=== PATIENT | female | born 1945 | race Caucasian/White ===

== ENCOUNTER 2016-05-09 19:05 | Emergency (ER) | payer MEDICARE ==
[2016-05-09] MEDS ORDERED: BENZONATATE 100 MG CAPSULE PO STA (19:42)
[2016-05-09] MEDS ORDERED: ALBUTEROL NEB 2.5 MG/3 ML INH STA ×2 (19:42→20:32)
[2016-05-09] MEDS ORDERED: DEXAMETHASONE 10 MG/ML VIAL PO STA (19:43)
[2016-05-09] MEDS ORDERED: BENZONATATE 100 MG CAPSULE PO ONE (19:49)
[2016-05-09] MEDS ORDERED: DEXAMETHASONE 10 MG/ML VIAL ONE (19:49)
[2016-05-09] MEDS ORDERED: CHERRY SYRUP 10 ML UDC PO ONE (19:49)
[2016-05-09] MEDS ORDERED: ALBUTEROL NEB 2.5 MG/3 ML INH ONE (20:03)
[2016-05-09] MEDS ORDERED: guaiFENesin/CODEINE 5 ML UDC PO STA (20:32)
[2016-05-09] MEDS ORDERED: guaiFENesin/CODEINE 5 ML UDC ONE ×2 (20:35→20:36)
[2016-05-09] MEDS ORDERED: ALBUTEROL 8 GM INHALER INH ONE (20:38)
[2016-05-09] MEDS ORDERED: ALBUTEROL 8 GM INHALER INH STA (20:42)
== END 2016-05-09 21:30 | disposition home or self-care (01) ==
DX: J40 Bronchitis, not specified as acute or chronic (principal); R03.0 Elevated blood-pressure reading, without diagnosis of hypertension; J45.909 Unspecified asthma, uncomplicated; G47.30 Sleep apnea, unspecified; K21.9 Gastro-esophageal reflux disease without esophagitis
CPT/HCPCS: 71020; 94640; 94664; 99283; 99284; A9270; J7613

== ENCOUNTER 2017-02-09 10:49 | Outpatient (CLI) | payer MEDICARE ==
--- NOTE | 2017-02-10 09:39 | Mammography Report ---
DIGITAL SCREENING MAMMOGRAPHY: 02/09/2017 COMPARISON: 02/12/2014, 09/19/2012, 04/11/2010, AND 03/28/2009. TECHNIQUE: Bilateral digital CC and MLO projections. FINDINGS: There are scattered fibroglandular densities. There is no dominant mass, architectural di stortion, skin thickening, suspicious microcalcifications, or obvious interval change. IMPRESSION: NEGATIVE. BIRADS CATEGORY 1. SUGGEST ROUTINE ANNUAL SCREENING. STANDARD QUALIFYING STATEMENTS 1. This examination was reviewed with the aid of Computer-Aided Detection (CAD). 2. A negative or benign imaging report should not delay biopsy if clinically suspicious findings are present. Consider surgical consultation if warranted. More than 5% of cancers are not identified by i maging. 3. Dense breasts may obscure an underlying neoplasm. JOB #: [id number] EXT JOB #:[id number]
== END 2017-02-09 10:50 | disposition home or self-care (01) ==
LOC: DI.N 10:49
PROVIDERS: ATTEND Obstetrics & Gynecology
DX: Z12.31 Encounter for screening mammogram for malignant neoplasm of breast (principal)
CPT/HCPCS: 77067

== ENCOUNTER 2018-02-11 07:04 | Outpatient (CLI) | payer MEDICARE ==
[2018-02-11 13:10] LABS: BASOPHILS % (AUTO) 0.1 %; EOSINOPHILS % (AUTO) 0.1 %; HGB - HEMOGLOBIN 12.8 g/dL (12.0-16.0); LYMPHOCYTES # (AUTO) 0.6 10^3/uL (1.5-3.5); LYMPHOCYTES % (AUTO) 18.9 %; MEAN CORPUSCULAR HGB CONC 34.8 g/dL (32.0-36.0); MEAN CORPUSCULAR VOLUME 89.1 fL (81.0-99.0); MEAN PLATELET VOLUME 8.6 fL (7.9-10.8); MONOCYTES # (AUTO) 0.3 10^3/uL (0.0-1.0); NEUTROPHILS # (AUTO) 2.2 10^3/uL (1.5-6.6); NEUTROPHILS % (AUTO) 69.9 %; PLT - PLATELET COUNT 163 10^3/uL (130-450); RED BLOOD COUNT 4.14 10^6/uL (4.20-5.40); RED CELL DISTRIBUTION WIDTH 13.8 % (12.0-15.0); WHITE BLOOD COUNT 3.2 x10^3/uL (4.8-10.8)
[2018-02-11 13:17] LABS: ALBUMIN 4.3 g/dL (3.2-5.5); ALBUMIN/GLOBULIN RATIO 1.7 (1.0-2.2); ALKALINE PHOSPHATASE 103 IU/L (42-121); ALT ALANINE AMINOTRANSFERASE 18 IU/L (10-60); AST ASPARTATE AMINOTRANSFERASE 21 IU/L (10-42); BILIRUBIN,TOTAL 0.6 mg/dL (0.2-1.0); BUN - BLOOD UREA NITROGEN 16 mg/dL (6-20); CALCIUM 9.2 mg/dL (8.5-10.3); CARBON DIOXIDE - CO2 27 mmol/L (21-32); CHLORIDE 102 mmol/L (101-111); CHOLESTEROL 185 mg/dL; CREATININE 0.7 mg/dL (0.4-1.0); GFR - MDRD 82 (>89); GLUCOSE 81 mg/dL (70-100); HDL CHOLESTEROL 61 mg/dL; LDL CHOLESTEROL,CALCULATED 111 mg/dL; LDL/HDL RATIO 1.8 (<4.4); SODIUM 138 mmol/L (135-145); TOTAL PROTEIN 6.9 g/dL (6.7-8.2); VLDL CHOLESTEROL 13 mg/dL
== END 2018-02-11 23:59 | disposition home or self-care (01) ==
LOC: LAB.WCP 07:04
PROVIDERS: ATTEND Family Medicine
DX: I10 Essential (primary) hypertension (principal)
CPT/HCPCS: 36415; 80053; 80061; 83721; 84443; 85025

== ENCOUNTER 2018-05-17 08:00 | Outpatient (CLI) | payer MEDICARE ==
[2018-05-17 12:44] LABS: BASOPHILS % (AUTO) 0.1 %; EOSINOPHILS % (AUTO) 0.1 %; HGB - HEMOGLOBIN 12.2 g/dL (12.0-16.0); LYMPHOCYTES # (AUTO) 0.6 10^3/uL (1.5-3.5); LYMPHOCYTES % (AUTO) 19.1 %; MEAN CORPUSCULAR HEMOGLOBIN 30.7 pg (27.0-31.0); MEAN CORPUSCULAR HGB CONC 34.9 g/dL (32.0-36.0); MEAN CORPUSCULAR VOLUME 87.9 fL (81.0-99.0); MEAN PLATELET VOLUME 8.3 fL (7.9-10.8); MONOCYTES # (AUTO) 0.4 10^3/uL (0.0-1.0); MONOCYTES % (AUTO) 11.6 %; NEUTROPHILS # (AUTO) 2.2 10^3/uL (1.5-6.6); NEUTROPHILS % (AUTO) 69.1 %; PLT - PLATELET COUNT 156 10^3/uL (130-450); RED BLOOD COUNT 3.99 10^6/uL (4.20-5.40); RED CELL DISTRIBUTION WIDTH 13.3 % (12.0-15.0); WHITE BLOOD COUNT 3.1 x10^3/uL (4.8-10.8)
[2018-05-17 13:00] LABS: CHOL/HDL RATIO 2.9 (<4.4); CHOLESTEROL 170 mg/dL; GLUCOSE 89 mg/dL (70-100); HDL CHOLESTEROL 58 mg/dL; LDL CHOLESTEROL,CALCULATED 100 mg/dL; LDL/HDL RATIO 1.7 (<4.4); VLDL CHOLESTEROL 12 mg/dL
[2018-05-17 13:13] LABS: HB2 TOTAL 12.8 g/dL; HEMOGLOBIN A1C 0.36 g/dL; HEMOGLOBIN A1C % 4.7 % (4.6-6.2)
== END 2018-05-17 23:59 | disposition home or self-care (01) ==
LOC: LAB.WCP 08:00
PROVIDERS: ATTEND Registered Nurse
DX: Z00.00 Encounter for general adult medical examination without abnormal findings (principal)
CPT/HCPCS: 36415; 80061; 82947; 83036; 83721; 84443; 85025

== ENCOUNTER 2018-06-02 15:35 | Outpatient (CLI) | payer MEDICARE ==
--- NOTE | 2018-06-03 09:52 | XRAY Report ---
Reason: HAND PAIN,RIGHT Procedure Date: 06/02/2018 Accession Number: [id number] / [id number] Procedure: WCP - Hand 3 View RT CPT Code: FULL RESULT: EXAM: RIGHT HAND RADIOGRAPHY EXAM DATE: 06/02/2018 03:43 PM. CLINICAL HISTORY: Right hand pain. Hit hand on branch. COMPARISON: None. TECHNIQUE: 3 views. FINDINGS: Bones: No acute fracture or bony lesion. Degenerative spurring largely along the DIP and PIP and first metacarpophalangeal and first carpometacarpal joints. No bony erosions. Joints: Joint space narrowing of the DIP and PIP and first metacarpophalangeal and carpometacarpal joints. No dislocation. Soft Tissues: No radiopaque foreign bodies. IMPRESSION: 1. No acute osseous abnormalities. 2. Degenerative changes of the right hand. RADIA
== END 2018-06-02 15:36 | disposition home or self-care (01) ==
LOC: DI.WCP 15:35
PROVIDERS: ATTEND Family Medicine
DX: M19.041 Primary osteoarthritis, right hand (principal); M77.9 Enthesopathy, unspecified

== ENCOUNTER 2018-07-13 07:45 | Outpatient (CLI) | payer MEDICARE ==
--- NOTE | 2018-07-13 08:52 | Mammography Report ---
Reason: SCREENING MAMMO Procedure Date: 07/13/2018 Accession Number: [id number] / [id number] Procedure: [facility] - Screening Mammo w/Mike CPT Code: FULL RESULT: EXAM: Screening Mammo w/Mike DATE: 07/13/2018 8:13 AM CLINICAL HISTORY: Screening encounter. History of early menses. Personal history of endometrial cancer and family history of breast cancer in a paternal aunt. TECHNIQUE: (B) - Bilateral CC and MLO views were obtained. COMPARISON: 02/09/2017 through 04/11/2010. PARENCHYMAL PATTERN: (A) - The breast(s) demonstrate(s) scattered fibroglandular densities. FINDINGS: There are no suspicious masses, calcifications, or areas of distortion. IMPRESSION: Negative examination. BI-RADS category 1. RECOMMENDATION: (ANNUAL) - Recommend routine annual screening mammography. BI-RADS CATEGORY: (1) - Negative. STANDARD QUALIFYING STATEMENTS: 1. This examination was not reviewed with the aid of Computer-Aided Detection (CAD). 2. A negative or benign imaging report should not preclude biopsy if clinically suspicious findings are present. 3. Dense breasts may obscure an underlying neoplasm. 4. This examination was reviewed with the aid of 3D breast imaging (tomosynthesis).
== END 2018-07-13 07:46 | disposition home or self-care (01) ==
LOC: DI 07:45
DX: Z12.31 Encounter for screening mammogram for malignant neoplasm of breast (principal); Z80.3 Family history of malignant neoplasm of breast
CPT/HCPCS: 77063; 77067

== ENCOUNTER 2018-07-13 07:46 | Outpatient (CLI) | payer MEDICARE ==
--- NOTE | 2018-07-14 08:08 | DEXA Report ---
Reason: SCREENING FOR OSTEOPOROSIS Procedure Date: 07/13/2018 Accession Number: [id number] / [id number] Procedure: DEX - Dexa Spine and/or Hip CPT Code: FULL RESULT: EXAM: Dexa Spine and/or Hip DATE: 07/13/2018 8:25 AM CLINICAL HISTORY: SCREENING FOR OSTEOPOROSIS TECHNIQUE: Dual energy x-ray absorptiometry (DXA) was performed on a [employer] System. Regions measured are the AP Spine, femoral neck, and if needed forearm. COMPARISON: None. In accordance with the International Society for Clinical Densitometry (ISCD) guidelines, data from previous exams may be reanalyzed using current recommendations and techniques. This is done to allow a more accurate basis for comparison with the current study. FINDINGS: The data for the lumbar spine is as follows: BMD (g/cm/cm) T-SCORE Z-SCORE REGION L1 0.811 -2.7 -1.7 L2 0.799 -3.3 -2.4 L3 1.055 -1.2 -0.2 L4 1.363 1.4 2.3 TOTAL 1.019 -1.3 -0.4 NOTE: All evaluable vertebrae are used for classification The data for the hip is as follows: BMD (g/cm/cm) T-SCORE Z-SCORE REGION Neck 0.871 -1.2 0.2 TOTAL 0.932 -0.6 0.5 NOTE: The femoral neck or total proximal femur, whichever is lowest, is used for classification. IMPRESSION: THE WHO CLASSIFICATION BASED ON THE INTERNATIONAL REFERENCE STANDARD IS OSTEOPENIA. THE FRACTURE RISK IS INCREASED. RECOMMENDATION: Patients with diagnosis of osteoporosis or osteopenia should have regular bone mineral density assessment. For those eligible for Medicare, routine testing is allowed once every 2 years. Testing frequency can be increased for patients who have rapidly progressing disease or for those who are receiving medical therapy to restore bone mass. COMMENT: World Health Organization (WHO) definitions for osteoporosis and osteopenia: NORMAL BMD: T-score at -1.0 or higher, fracture risk is low OSTEOPENIA BMD: T-score between -1.0 and -2.5, fracture risk is increased. OSTEOPOROSIS BMD: T-score at -2.5 or lower, fracture risk is high. National Osteoporosis Foundation recommends: 1. Obtain adequate dietary calcium (at least 1200 mg per day) and vitamin D (400-800 international units per day). 2. Participate, as appropriate, in regular weightbearing and muscle-strengthening exercise. 3. Avoid tobacco use and reduce alcohol and caffeine intake. 4. For more detailed information see the website at www.NOF.org.
== END 2018-07-13 07:47 | disposition home or self-care (01) ==
LOC: DI 07:46
PROVIDERS: ATTEND Registered Nurse
DX: Z13.820 Encounter for screening for osteoporosis (principal); M85.89 Other specified disorders of bone density and structure, multiple sites
CPT/HCPCS: 77080

== ENCOUNTER 2018-08-24 11:35 | Emergency (ER) | payer MEDICARE ==
--- NOTE | 2018-08-24 11:59 | ED Physician Documentation ---
PD HPI HEENT - Stated complaint Stated Complaint: DIFFICULTY SWALLOWING - Chief complaint Chief Complaint: Heent - History obtained from History obtained from: Patient - History of Present Illness Timing - onset: Yesterday (Noted in the morning when she took her morning vitamins and medications that she felt like a lump feeling and irritation in her upper esophagus/throat. She is continued with pain with swallowing there and a feeling like there may be a foreign body. She has not taken any antibiotics nor iron tablets. She has had a feeling of some perhaps swelling in the lower throat. She says her voice is normal. She has not had trouble breathing.) Timing - duration: Days (1) Timing - details: Abrupt onset, Still present Location: Throat Worsens: Swalllowing Associated symptoms: No: Fever, Congestion, Unable to swallow Similar symptoms before: Has not had sx before Recently seen: Not recently seen Review of Systems Constitutional: denies: Fever, Chills Nose: denies: Rhinorrhea / runny nose, Congestion Throat: reports: Sore throat. denies: Dental pain / toothache Cardiac: denies: Chest pain / pressure Respiratory: denies: Dyspnea, Cough GI: denies: Vomiting PD PAST MEDICAL HISTORY - Past Medical History Cardiovascular: None Respiratory: None, Asthma, Sleep apnea Endocrine/Autoimmune: None GI: GERD, Other EDGE STAINER MACHINE: None : None HEENT: None Psych: None Musculoskeletal: None Derm: None - Past Surgical History Past Surgical History: No General: Appendectomy, Colonoscopy Ortho: Arthroscopic surgery /EDGE STAINER MACHINE: Hysterectomy HEENT: Tonsil/Adenoidectomy, Other - Present Medications Home Medications: Ambulatory Orders Medication Instructions Recorded Confirmed Cyclosporine [Restasis] 1 drop EACHEYE DAILY 10/16/14 08/24/18 Estradiol [Estring] 1 each VG ONCE 10/16/14 08/24/18 Promethazine [Phenergan] 25 mg PO PRN PRN 05/09/16 08/24/18 dexAMETHasone [Decadron] 4 mg PO DAILY #5 tablet 08/24/18 raNITIdine HCl [Zantac] 150 mg PO DAILY 08/24/18 08/24/18 - Allergies Allergies/Adverse Reactions: Allergies Allergy/AdvReac Type Severity Reaction Status Date / Time gluten Allergy Unknown Verified 08/24/18 11:45 prednisone AdvReac Anxiety Verified 08/24/18 11:45 tetracycline AdvReac Cramps Verified 08/24/18 11:45 - Social History Does the pt smoke?: No Smoking Status: Never smoker Does the pt drink ETOH?: No Does the pt have substance abuse?: No - Immunizations Immunizations are current?: Yes - POLST Patient has POLST: No PD ED PE NORMAL - Vitals Vital signs reviewed: Yes - General General: Alert and oriented X 3, No acute distress, Well developed/nourished - HEENT HEENT: Pharynx benign - Derm Derm: Normal color, Warm and dry - Neuro Neuro: Alert and oriented X 3, No motor deficit, Normal speech Results - Vitals Vitals: Oxygen O2 Source Room air - Labs Labs: Laboratory Tests 08/24/18 12:50 Sodium 136 Potassium 4.1 Chloride 99 L Carbon Dioxide 25 Anion Gap 12.0 BUN 21 H Creatinine 0.9 Estimated GFR (MDRD) 61 L Glucose 99 Calcium 9.7 PD MEDICAL DECISION MAKING - ED course Complexity details: considered differential (likely residual irritation from pill temp stuck. discussed lido/mylanta and another day time to see if better, versus CT neck to eval. Were not expectedly caustic meds or such, such as iron or doxy, so time should be okay. Shared decision to give it another day. ), d/w patient Departure - Departure Disposition: 01 Home, Self Care Clinical Impression: Throat irritation Condition: Stable Record reviewed to determine appropriate education?: Yes Follow-Up: Mattie Brown MD [Primary Care Provider] - Prescriptions: dexAMETHasone [Decadron] 4 mg PO DAILY #5 tablet Comments: Your CT scan is normal without any signs of residual foreign body/pill and no signs of localized swelling tumors or other abnormality. The scan would not show just a local irritation of the throat. It would not necessarily identify mild swelling nor muscle tightness as well. At least there is no significant degree of swelling as that would be visible. Consider using some steroid type anti-inflammatory to help with swelling. This may even be allergy mediated. Soft food only for the next day or 2 in case it is an irritation from the tablets having been temporarily stuck. Recheck if not improved over the next couple of days. Discharge Date/Time: 08/24/18 14:26
[2018-08-24] MEDS ORDERED: CHERRY SYRUP 10 ML UDC PO ONE (12:18)
[2018-08-24] MEDS ORDERED: DEXAMETHASONE 10 MG/ML VIAL PO STA (12:18)
[2018-08-24 13:15] LABS: CALCIUM 9.7 mg/dL (8.5-10.3); CREATININE 0.9 mg/dL (0.4-1.0)
[2018-08-24] MEDS ORDERED: IOVERSOL 320 100 ML VIAL IVP ONE ×2 (13:21→13:45)
--- NOTE | 2018-08-24 14:01 | CT Report ---
Reason: feeling FB in throat, pain swallowing Procedure Date: 08/24/2018 Accession Number: [id number] / [id number] Procedure: CT - SOFT TISSUE NECK W CPT Code: FULL RESULT: EXAM: CT SOFT TISSUE NECK WITH CONTRAST. EXAM DATE: 08/24/2018 01:42 PM. HISTORY: Trouble swallowing. Feeling of foreign body in the throat. Pain with swallowing. COMPARISONS: None. TECHNIQUE: Routine soft tissue neck CT protocol. Reconstructions: Coronal and sagittal. IV contrast: 80 mL Optiray 320. In accordance with CT protocol optimization, one or more of the following dose reduction techniques were utilized for this exam: automated exposure control, adjustment of mA and/or KV based on patient size, or use of iterative reconstructive technique. FINDINGS: Visualized Intracranial Contents: Unremarkable. Orbits: Unremarkable. Note is made of bilateral lens removal. Sinuses: Visualized paranasal sinuses and mastoid air cells are clear. Oral cavity: Metallic artifact from dentition partially obscures the oral cavity. The floor of the mouth is symmetric. Pharynx: Pharyngeal mucosa is unremarkable. The infratemporal fossa, parapharyngeal spaces, and retropharyngeal space are unremarkable. The store director spaces and pterygopalatine fossa are unremarkable. The base of the tongue is symmetric and unremarkable. The airway is patent. Larynx: Larynx and supraglottic airway are patent without mass lesion. Vocal cords are symmetric. The visualized trachea is unremarkable. Parotid and Submandibular Glands: Symmetric and unremarkable. Lymph Nodes: No enlarged lymph nodes are identified in the cervical, supraclavicular, and visualized superior mediastinal regions. Soft tissues: Soft tissues are unremarkable. No mass lesion or abnormal enhancement. Vascular Structures: Patent and unremarkable. Thyroid Gland: Normal. Lung: The visualized lung apices are clear. The visualized proximal esophagus is unremarkable. Bones: No evidence of acute fracture or malalignment. There are mild degenerative changes. Other: None. IMPRESSION: 1. Negative CT scan of the neck. No mass or adenopathy is seen. No fascial plane inflammation or fluid collection is seen. 2. No radiopaque foreign body is evident. RADIA
[2018-08-24 14:26] VITALS: BP 123/63
== END 2018-08-24 14:26 | disposition home or self-care (01) ==
LOC: ED 11:35
DX: R07.0 Pain in throat (principal); R13.10 Dysphagia, unspecified; Z79.899 Other long term (current) drug therapy; Z87.09 Personal history of other diseases of the respiratory system; Z87.19 Personal history of other diseases of the digestive system
CPT/HCPCS: 36415; 70491; 80048; 99283; A9270; Q9967

== ENCOUNTER 2022-06-01 09:39 | Outpatient (CLI) | payer MEDICARE ==
[2022-06-01 09:54] LABS: EOSINOPHILS % (AUTO) 0.2 %; HCT - HEMATOCRIT 38.2 % (37.0-47.0); LYMPHOCYTES # (AUTO) 0.8 10^3/uL (1.5-3.5); LYMPHOCYTES % (AUTO) 20.5 %; MEAN CORPUSCULAR VOLUME 88.2 fL (81.0-99.0); MEAN PLATELET VOLUME 9.4 fL (7.9-10.8); MONOCYTES # (AUTO) 0.5 10^3/uL (0.0-1.0); MONOCYTES % (AUTO) 11.1 %; NEUTROPHILS # (AUTO) 2.8 10^3/uL (1.5-6.6); NEUTROPHILS % (AUTO) 68.2 %; PLT - PLATELET COUNT 150 10^3/uL (130-450); RED BLOOD COUNT 4.33 10^6/uL (4.20-5.40); RED CELL DISTRIBUTION WIDTH 12.9 % (12.0-15.0)
[2022-06-01 10:23] LABS: ALBUMIN 4.3 g/dL (3.2-5.5); ALBUMIN/GLOBULIN RATIO 1.8 (1.0-2.2); ALKALINE PHOSPHATASE 81 IU/L (42-121); ALT ALANINE AMINOTRANSFERASE 20 IU/L (10-60); AST ASPARTATE AMINOTRANSFERASE 21 IU/L (10-42); BILIRUBIN,TOTAL 0.8 mg/dL (0.2-1.0); BUN - BLOOD UREA NITROGEN 14 mg/dL (6-20); CALCIUM 9.1 mg/dL (8.5-10.3); CARBON DIOXIDE - CO2 25 mmol/L (21-32); CHLORIDE 97 mmol/L (101-111); CHOL/HDL RATIO 2.7 (<4.4); CHOLESTEROL 196 mg/dL; CREATININE 0.7 mg/dL (0.4-1.0); GFR - MDRD 81 (>89); GLUCOSE 99 mg/dL (70-100); HDL CHOLESTEROL 72 mg/dL; POTASSIUM 3.9 mmol/L (3.5-5.0); SODIUM 130 mmol/L (135-145); TOTAL PROTEIN 6.7 g/dL (6.7-8.2); TRIGLYCERIDES 39 mg/dL
[2022-06-01 10:36] LABS: THYROID STIMULATING HORMONE 2.77 uIU/mL (0.34-5.60)
[2022-06-01 14:00] LABS: ESTIMATED AVERAGE GLUCOSE 94 mg/dL (70-100); HEMOGLOBIN A1c% 4.9 % (4.27-6.07)
== END 2022-06-01 09:40 | disposition home or self-care (01) ==
LOC: LAB 09:39
PROVIDERS: ATTEND Nurse Practitioner Family
DX: R03.0 Elevated blood-pressure reading, without diagnosis of hypertension (principal); E66.9 Obesity, unspecified; Z13.220 Encounter for screening for lipoid disorders
CPT/HCPCS: 36415; 80053; 80061; 83036; 83721; 84443; 85025

== ENCOUNTER 2022-07-02 11:37 | Outpatient (CLI) | payer MEDICARE ==
[2022-07-02 12:00] LABS: CREATININE 0.7 mg/dL (0.4-1.0)
[2022-07-03 16:08] LABS: OSMOLALITY 281 mOsmol/kg (280-301); OSMOLALITY URINE 100 mOsmol/kg (.)
== END 2022-07-02 11:38 | disposition home or self-care (01) ==
LOC: LAB 11:37
PROVIDERS: ATTEND Nurse Practitioner Family
DX: E87.1 Hypo-osmolality and hyponatremia (principal)
CPT/HCPCS: 36415; 80048; 83930; 83935; 84300

== ENCOUNTER 2023-02-11 20:15 | Emergency (ER) | payer MEDICARE ==
[2023-02-11 20:26] VITALS: BP 150/90; O2SAT 100
[2023-02-11] MEDS ORDERED: LIDOCAINE JELLY 2% 6 ML JEL.PF.APP TOP STA (20:28)
--- NOTE | 2023-02-11 20:31 | ED Physician Documentation ---
PD HPI WOUND RECHECK - Stated complaint Stated Complaint: RT TOE BUG BITE - Chief complaint Chief Complaint: Wound - Histroy obtained from History obtained from: Patient (77-year-old woman was putting on her boots a couple of hours ago and thinks she was bitten by something to the right great toe with significant pain there. No other injuries. She did not see a bug.) PD PAST MEDICAL HISTORY - Past Medical History Past Medical History: Yes Cardiovascular: None Respiratory: None, Asthma, Sleep apnea Endocrine/Autoimmune: None GI: GERD, Other REGIONAL FACILITIES SPECIALIST: None : None HEENT: None Psych: None Musculoskeletal: None Derm: None - Past Surgical History Past Surgical History: No General: Appendectomy, Colonoscopy Ortho: Arthroscopic surgery /REGIONAL FACILITIES SPECIALIST: Hysterectomy HEENT: Tonsil/Adenoidectomy, Other - Present Medications Home Medications: Ambulatory Orders Medication Instructions Recorded Confirmed cycloSPORINE [Restasis] 1 drop EACHEYE DAILY 10/16/14 08/24/18 estradioL [Estring] 1 each VG ONCE 10/16/14 08/24/18 Promethazine [Phenergan] 25 mg PO PRN PRN 05/09/16 08/24/18 dexAMETHasone [Decadron] 4 mg PO DAILY #5 tablet 08/24/18 raNITIdine HCL [Zantac] 150 mg PO DAILY 08/24/18 08/24/18 lidocaine HCL [Dermacinrx Lidogel] 5 ml TP QID #100 gm 02/11/23 - Allergies Allergies/Adverse Reactions: Allergies Allergy/AdvReac Type Severity Reaction Status Date / Time gluten Allergy Unknown Verified 02/11/23 20:18 prednisone AdvReac Anxiety Verified 02/11/23 20:18 tetracycline AdvReac Cramps Verified 02/11/23 20:18 - Social History Does the pt smoke?: No Smoking Status: Never smoker Does the pt drink ETOH?: No Does the pt have substance abuse?: No - Immunizations Immunizations are current?: Yes - POLST Patient has POLST: No PD ED PE NORMAL - Vitals Vital signs reviewed: Yes - General General: Alert and oriented X 3, No acute distress - Extremities Extremities: Other (Redness to the tip of the right great toe without limited range of motion or significant tenderness.) - Neuro Neuro: Alert and oriented X 3, Normal speech Results - Vitals Vitals: Vital Signs - 24 hr 02/11/23 20:18 Temperature 36.5 C Heart Rate 77 Respiratory 18 Rate Blood Pressure 150/90 H O2 Saturation 100 Oxygen O2 Source Room air PD Medical Decision Making - ED course ED course: Appears like some sort of bug bite, could have been a bee sting or a spider. She declined anything systemic for pain but agreeable to some lidocaine. The sudden onset and fairly small area of redness would suggest against cellulitis or infection. Departure - Departure Disposition: 01 Home, Self Care Clinical Impression: Bug bite Condition: Good Record reviewed to determine appropriate education?: Yes Instructions: ED Bite Sting Insect Local Allergic React Prescriptions: lidocaine HCL [Dermacinrx Lidogel] 5 ml TP QID #100 gm Comments: Pain should be gone in about a day I would think. Return for new or worsening symptoms or any fever. You can apply the lidocaine ointment under a nonstick dressing a few times a day for the pain but should not need it more than a day or 2.
== END 2023-02-11 20:59 | disposition home or self-care (01) ==
LOC: ED 20:15
DX: S90.461A Insect bite (nonvenomous), right great toe, initial encounter (principal); W57.XXXA Bitten or stung by nonvenomous insect and other nonvenomous arthropods, initial encounter; Z79.899 Other long term (current) drug therapy
CPT/HCPCS: 99282

== ENCOUNTER 2023-07-16 12:29 | Outpatient (CLI) | payer MEDICARE ==
[2023-07-16 12:41] LABS: HGB - HEMOGLOBIN 12.7 g/dL (12.0-16.0); LYMPHOCYTES # (AUTO) 1.4 10^3/uL (1.5-3.5); LYMPHOCYTES % (AUTO) 23.6 %; MEAN CORPUSCULAR HEMOGLOBIN 29.1 pg (27.0-31.0); MEAN CORPUSCULAR HGB CONC 32.6 g/dL (32.0-36.0); MEAN CORPUSCULAR VOLUME 89.2 fL (81.0-99.0); MEAN PLATELET VOLUME 9.4 fL (7.9-10.8); MONOCYTES # (AUTO) 0.5 10^3/uL (0.0-1.0); MONOCYTES % (AUTO) 8.3 %; NEUTROPHILS % (AUTO) 67.9 %; PLT - PLATELET COUNT 155 10^3/uL (130-450); RED BLOOD COUNT 4.37 10^6/uL (4.20-5.40); RED CELL DISTRIBUTION WIDTH 13.2 % (12.0-15.0); WHITE BLOOD COUNT 5.9 x10^3/uL (4.8-10.8)
[2023-07-16 12:55] LABS: ALBUMIN 4.4 g/dL (3.2-5.5); ALBUMIN/GLOBULIN RATIO 1.7 (1.0-2.2); BILIRUBIN,TOTAL 0.5 mg/dL (0.2-1.0); CALCIUM 9.7 mg/dL (8.5-10.3); CREATININE 0.8 mg/dL (0.6-1.3); POTASSIUM 3.8 mmol/L (3.5-4.5)
--- NOTE | 2023-07-16 14:34 | XRAY Report ---
Chest 2V HISTORY: CHRONIC COUGH COMPARISON: 05/09/2016. TECHNIQUE: 2 views of the chest are submitted for interpretation. FINDINGS/IMPRESSION: No pleural effusion or pneumothorax. No pulmonary edema or focal consolidation. Normal cardiomediastinal silhouette. Reviewed by: Alpa Leon MD on 07/16/2023 2:33 PM PDT Approved by: Alpa Leon MD on 07/16/2023 2:33 PM PDT Station ID: [id number]
== END 2023-07-16 12:30 | disposition home or self-care (01) ==
LOC: LAB 12:29
PROVIDERS: ATTEND Nurse Practitioner Family
DX: R09.82 Postnasal drip (principal); R05.3 Chronic cough; R49.0 Dysphonia; J45.909 Unspecified asthma, uncomplicated
CPT/HCPCS: 36415; 80053; 85025

== ENCOUNTER 2023-09-05 18:05 | Emergency (ER) | payer MEDICARE ==
[2023-09-05 18:23] VITALS: O2SAT 100
--- NOTE | 2023-09-05 18:35 | ED Physician Documentation ---
PD HPI UPPER EXT INJURY - Stated complaint Stated Complaint: L HAND LAC - Chief complaint Chief Complaint: Laceration - History obtained from History obtained from: Patient - Additonal information Additional information: Right-handed woman with tetanus greater than 10 years ago cut her left index finger with a hedge tremor at home just prior to arrival. No other injuries. Pain is severe. PD PAST MEDICAL HISTORY - Past Medical History Past Medical History: Yes Cardiovascular: None Respiratory: Asthma, Sleep apnea Neuro: None Endocrine/Autoimmune: None GI: GERD, Other FISHERIES DIVER: None : None HEENT: None Psych: None Musculoskeletal: None Derm: None - Past Surgical History Past Surgical History: No General: Appendectomy, Colonoscopy Ortho: Arthroscopic surgery /FISHERIES DIVER: Hysterectomy HEENT: Tonsil/Adenoidectomy, Other - Present Medications Home Medications: Ambulatory Orders Medication Instructions Recorded Confirmed cycloSPORINE [Restasis] 1 drop EACHEYE DAILY 10/16/14 08/24/18 estradioL [Estring] 1 each VG ONCE 10/16/14 08/24/18 Promethazine [Phenergan] 25 mg PO PRN PRN 05/09/16 08/24/18 dexAMETHasone [Decadron] 4 mg PO DAILY #5 tablet 08/24/18 raNITIdine HCL [Zantac] 150 mg PO DAILY 08/24/18 08/24/18 lidocaine HCL [Dermacinrx Lidogel] 5 ml TP QID #100 gm 02/11/23 Bacitracin Zinc Oint 1 applic TOP BID #1 each 09/05/23 HYDROcod/ACETAM 5/325 [Winlock 5/325] 1 - 2 tab PO Q6H PRN #15 tablet 09/05/23 cephALEXin [Keflex] 500 mg PO Q6H #20 cap 09/05/23 - Allergies Allergies/Adverse Reactions: Allergies Allergy/AdvReac Type Severity Reaction Status Date / Time gluten Allergy Unknown Verified 09/05/23 18:15 prednisone AdvReac Anxiety Verified 09/05/23 18:15 tetracycline AdvReac Cramps Verified 09/05/23 18:15 - Social History Does the pt smoke?: No Smoking Status: Never smoker Does the pt drink ETOH?: No Does the pt have substance abuse?: No - Immunizations Immunizations are current?: No Immunizations: TDAP >10years/unknown - POLST Patient has POLST: No PD ED PE NORMAL - Vitals Vital signs reviewed: Yes - General General: Alert and oriented X 3, No acute distress - Extremities Extremities: Other (see MDM- text box too small) - Neuro Neuro: Alert and oriented X 3, Normal speech Results - Vitals Vitals: Vital Signs - 24 hr 09/05/23 09/05/23 18:16 21:40 Temperature 36.6 C Heart Rate 79 70 Respiratory 20 16 Rate Blood Pressure 168/96 H 143/89 H O2 Saturation 100 100 Oxygen O2 Source Room air - Rads (name of study) Three-view x-ray of the left middle finger demonstrates an anterior cortical irregularity likely a nondisplaced fracture of the head of the middle pha Relevant Findings:: Final report received, EMP independent interpretation of test Procedures - Laceration (location) L 2nd finger Length in cm: 3 Wound type: Stellate, Irregular Neurovascular status: Sensory intact Tendon involvement: Tendon Injury (flexor) Anesthesia: Lidocaine 1% Wound preparation: Irrigated copiously NS Skin layer closure: Nylon, Interrupted, Size #-0 - enter number (4-0) Other: Patient tolerated well, No complications, Tetanus booster given - Splint (location) - Minor L 2ND FINGER Splint applied by: Physician Type of splint: Metal foam finger splint PD Medical Decision Making - ED course ED course: On initial examination she was wearing a garden glove with an obvious laceration on the radial side of the left index finger. She seemed to have a grossly intact sensation through the glove distal to the injury but I could not formally assess that due to pain and patient intolerance prior to anesthetic. Postanesthetic it became clear that she has an extensive laceration over the proximal phalanx of the radial side of the left index finger and cannot flex the digit. See Dr. Hair's note. Basically [facility] called back and said they were too busy to take her in follow-up. I did speak with the patient on September 05 at noon and discussed this and gave her phone numbers for Drs. Basilio and Louisa in [place] for follow-up and invited her to call me back if she was having any trouble arranging follow-up. Departure - Departure Disposition: 01 Home, Self Care Clinical Impression: Laceration Open fracture of phalanx of digit of hand Qualifiers: Encounter type: initial encounter Qualified Code(s): S62.609B - Fracture of unspecified phalanx of unspecified finger, initial encounter for open fracture Injury of flexor tendon of hand Qualifiers: Encounter type: initial encounter Laterality: left Qualified Code(s): S66.802A - Unspecified injury of other specified muscles, fascia and tendons at wrist and hand level, left hand, initial encounter Condition: Good Record reviewed to determine appropriate education?: Yes Instructions: ED Fx Hand Open Prescriptions: Bacitracin Zinc Oint 1 applic TOP BID #1 each cephALEXin [Keflex] 500 mg PO Q6H #20 cap HYDROcod/ACETAM 5/325 [Winlock 5/325] 1 - 2 tab PO Q6H PRN #15 tablet PRN Reason: Pain Comments: I sent your prescriptions electronically to the [facility] in [place]. Today we have consulted with the hand service at [facility] and they will contact you to get you into clinic. I believe you may have a flexor tendon injury of that finger. You do have a fracture of that finger, but it is fairly minor. You can keep the current bulky dressing and splint on until Wednesday, at which point recommend you could take it down gingerly and wash it briefly with soap and water. Then apply bacitracin ointment and a nonstick dressing and wrap and then reapply the splint. Elevate as well as much for pain. I am prescribing a short course of narcotic pain medication for you. These are potentially dangerous and addictive medications that should be used carefully. These medications may constipate you. Take an uruf-fbq-qbxpdev stool softener (docusate) twice daily with plenty of water while taking these medications. If you go 24 hours without a bowel movement, take rcly-hkr-[id number] miralax, per package instructions. Do not drink or drive while taking these medications. If you received narcotic or sedating medications while in the emergency department, do not drive for 24 hours. Store this medication in a safe, secure place and out of reach of children. It is a violation of federal law to give or sell this medication to another person or to use in a manner other than prescribed. The ED will not refill narcotic prescriptions, including prescriptions lost or stolen. To dispose of unwanted medications: 1. [facility]'s Office provides a drop box for medication in pill form only (no liquids) 8:00 am to 4:30 p.m. Wednesday-Wednesday in the lobby of the [facility], [address] Empty pills into ziplock bag before disposal. Call [phone] for information. 2.[employer] is a free service available to all [facility] residents. Go to [email or web address] Note that many narcotic pain relievers also contain Tylenol/acetaminophen. Please ensure that your total dose of acetaminophen from all sources does not exceed 3 g (3000 mg) per day. Forms: PCP List Discharge Date/Time: 09/05/23 21:46
[2023-09-05] MEDS: lidocaine 1% 20 ML MDV SUBQ ONE (18:47)
[2023-09-05] MEDS: TETANUS/DIPHTHERIA/PERTUSSIS 0.5 ML SYRINGE IM ONE (18:47)
[2023-09-05] MEDS: cephALEXin 250 MG CAPSULE PO STA (19:25)
[2023-09-05] MEDS: HYDROcod/ACET 5/325 Prepack 4 PO STA (20:29)
[2023-09-05] MEDS: CEPHALEXIN 250 MG Prepack 8 CAP BOTTLE PO STA (20:29)
--- NOTE | 2023-09-05 21:11 | XRAY Report ---
PROCEDURE: Finger(s) LT INDICATIONS: finger inj TECHNIQUE: AP hand, 2 views of the second finger(s) acquired. COMPARISON: None. FINDINGS: Bones: Mild to moderate scattered degenerative changes. This is particularly seen in the base of the thumb. Possible nondisplaced fracture and cortical irregularity at the head of the middle phalanx. Soft tissues: Soft tissue swelling is present. IMPRESSION: Possible nondisplaced fracture and cortical irregularity at the head of the middle phalanx. Soft tiss ue swelling is present. Probable osteophytes are seen surrounding the DIP. Reviewed by: Fritz Ni MD on 09/05/2023 9:10 PM PDT Approved by: Fritz Ni MD on 09/05/2023 9:10 PM PDT Station ID: [id number]
[2023-09-05 21:43] VITALS: BP 143/89
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
== END 2023-09-05 21:46 | disposition home or self-care (01) ==
LOC: ED 18:05
DX: S62.651A Nondisplaced fracture of middle phalanx of left index finger, initial encounter for closed fracture (principal); W26.8XXA Contact with other sharp object(s), not elsewhere classified, initial encounter; Y93.H2 Activity, gardening and landscaping; Y92.007 Garden or yard of unspecified non-institutional (private) residence as the place of occurrence of the external cause; Z23 Encounter for immunization; G47.30 Sleep apnea, unspecified; J45.909 Unspecified asthma, uncomplicated; Z79.899 Other long term (current) drug therapy
CPT/HCPCS: 12002; 73140; 90471; 90715; 99283; A9270

== ENCOUNTER 2023-10-22 08:06 | Outpatient (CLI) | payer MEDICARE ==
[2023-10-22 08:37] LABS: ALBUMIN/GLOBULIN RATIO 1.7 (1.0-2.2); ALKALINE PHOSPHATASE 83 IU/L (42-121); ALT ALANINE AMINOTRANSFERASE 13 IU/L (10-60); AST ASPARTATE AMINOTRANSFERASE 17 IU/L (10-42); BILIRUBIN,TOTAL 0.5 mg/dL (0.2-1.0); BUN - BLOOD UREA NITROGEN 14 mg/dL (6-20); CALCIUM 9.2 mg/dL (8.5-10.3); CARBON DIOXIDE - CO2 28 mmol/L (21-32); CHLORIDE 103 mmol/L (101-111); CHOLESTEROL 183 mg/dL; GFR - MDRD 53 (>89); GLUCOSE 91 mg/dL (74-104); HDL CHOLESTEROL 62 mg/dL; LDL CHOLESTEROL,CALCULATED 108 mg/dL; LDL/HDL RATIO 1.7 (<4.4); POTASSIUM 4.5 mmol/L (3.5-4.5); SODIUM 135 mmol/L (135-145); TOTAL PROTEIN 6.3 g/dL (6.4-8.9); TRIGLYCERIDES 65 mg/dL; VLDL CHOLESTEROL 13 mg/dL
[2023-10-22 08:52] LABS: THYROID STIMULATING HORMONE 2.75 uIU/mL (0.34-5.60)
[2023-10-22 12:06] LABS: ESTIMATED AVERAGE GLUCOSE 100 mg/dL (70-100); HEMOGLOBIN A1c% 5.1 % (4.27-6.07)
== END 2023-10-22 08:07 | disposition home or self-care (01) ==
LOC: LAB 08:06
PROVIDERS: ATTEND Nurse Practitioner Family
DX: R73.03 Prediabetes (principal); Z71.3 Dietary counseling and surveillance
CPT/HCPCS: 36415; 80053; 80061; 83036; 83721; 84443